=== PATIENT | male | born 1960 | race Caucasian/White ===

== ENCOUNTER → 2018-05-15 10:49 | Outpatient (CLI) | payer OTHER, SELFPAY ==
--- NOTE | 2018-05-15 | DI.RAD.S_ITS ---
PROCEDURE: XR CERVICAL SPINE 2V OR 3V INDICATIONS: CHRONIC PAIN OF BOTH KNEES TECHNIQUE: 4 view(s) of the cervical spine were acquired. COMPARISON: None. FINDINGS: Bones: No fractures or dislocations to the T1 level. The lateral masses of C1 appear intact on the odontoid view. No suspicious bony lesions. There are large bridging osteophytes producing ankylosis between the anterior vertebral bodies of C2 through C7 and possibly into T1. Soft tissues: No prevertebral soft tissue swelling. IMPRESSION: Large anterior bridging osteophytes, producing what appears to be an ankylosis along the anterior cervical spine extending to the cervical thoracic junction. No acute trauma appears associated. Dictated by: Markie Mckinney M.D. on 05/15/2018 at 12:56 Approved by: Markie Mckinney M.D. on 05/15/2018 at 12:57
--- NOTE | 2018-05-15 | DI.RAD.S_ITS ---
PROCEDURE: XR KNEE LT 3V INDICATIONS: CHRONIC PAIN OF BOTH KNEES TECHNIQUE: 3 views of the knee were acquired. COMPARISON: None. FINDINGS: Bones: No fractures or dislocations. No suspicious bony lesions. There is mild to moderate medial patellofemoral compartment narrowing. Small periarticular osteophytes are present. No erosions. Patellar osteophytes are present. Soft tissues: Minimal to mild joint effusion. No suspicious soft tissue calcifications. IMPRESSION: Mild to moderate degenerative changes as above most suggestive of arthritis. Dictated by: Sharita Berman M.D. on 05/15/2018 at 12:09 Approved by: Sharita Berman M.D. on 05/15/2018 at 12:10
== END ==
PROVIDERS: PCP Family Medicine; Visit Provider Family Medicine
DX: M54.2 Cervicalgia (principal); M25.561 Pain in right knee; M25.562 Pain in left knee; G89.29 Other chronic pain; N40.1 Benign prostatic hyperplasia with lower urinary tract symptoms
CPT/HCPCS: 72040; 73562

== ENCOUNTER → 2020-01-06 09:07 | Outpatient (CLI) | payer OTHER, SELFPAY ==
--- NOTE | 2020-01-06 | DI.RAD.S_ITS ---
PROCEDURE: XR CERVICAL SPINE 2V OR 3V INDICATIONS: CERVICAL SPONDYLOSIS WITH RADICULOPATHY TECHNIQUE: 3 view(s) of the cervical spine were acquired. COMPARISON: [facility], NATE, CT KUB, 06/18/2004, 9:31. [facility], JERI, XR CERVICAL SPINE 2V OR 3V, 05/15/2018, 11:08. FINDINGS: Bones: No fractures or dislocations to the T1 level. The lateral masses of C1 appear intact on the odontoid view. No suspicious bony lesions. There is mild multilevel mid and lower cervical spine disc degeneration similar to prior examination as well as calcification and bridging osteophytes of the vertebral bodies along the anterior longitudinal ligament as seen on prior exam. There has been debridement of anterior bridging calcification from C2 through C5. Soft tissues: No prevertebral soft tissue swelling. Airway caliber is normal. IMPRESSION: 1. Mild multilevel mid and lower cervical spine disc degeneration with calcification along the anterior longitudinal ligament. 2. Interval debridement of bulky anterior bridging calcification from C2 through C5. Dictated by: Yasmany Doyle [facility] Interpreted: Jerrica Bustos MD on 01/06/2020 at 9:27 Approved by: Jerrica Bustos M.D. on 01/06/2020 at 10:56
== END ==
PROVIDERS: PCP Family Medicine; Referring Provider Neurological Surgery; Visit Provider Neurological Surgery
DX: M47.22 Other spondylosis with radiculopathy, cervical region (principal); M50.120 Mid-cervical disc disorder, unspecified level
CPT/HCPCS: 72040

== ENCOUNTER → 2020-08-17 10:51 | Outpatient (CLI) | payer OTHER, SELFPAY ==
--- NOTE | 2020-08-17 10:58 | DI.CT.S_ITS ---
PROCEDURE: CT ABDOMEN PELVIS WO CON INDICATIONS: FLANK PAIN TECHNIQUE: After the administration of oral contrast, 5 mm thick sections acquired from the diaphragms to the symphysis. 5 mm coronal and sagittal reformats were performed. For radiation dose reduction, the following was used: automated exposure control, adjustment of mA and/or kV according to patient size. COMPARISON: [facility], , CT KUB, 06/18/2004, 9:31. FINDINGS: Image quality: Excellent. ABDOMEN: Lung bases: Lung bases are clear. Heart size is normal. Solid organs: Liver is normal in size. Gallbladder appears normal. Pancreas is normal in size. Spleen is normal in size. No adrenal nodules. Both kidneys are normal in size, without hydronephrosis or nephrolithiasis. Note is made of mild prominence of the central renal collecting system of the right kidney, not present on prior CT scanning 06/18/04. Over the right urinary tract a calculus cannot be seen. A mass lesion is not identified but the study is performed without contrast and therefore is reduced in sensitivity for accurate detection of small neoplasm. Peritoneum and bowel: Bowel loops demonstrate normal wall thickness and caliber. No free fluid or air. Nodes and vessels: No retroperitoneal or mesenteric adenopathy by size criteria. Aorta and inferior vena cava are normal in size. Miscellaneous: No ventral hernias. PELVIS: Genitourinary: Bladder wall thickness is normal. Miscellaneous: No inguinal hernias or adenopathy. Bones: No suspicious bony lesions. No vertebral body compression fractures. IMPRESSION: Mild right hydronephrosis etiology uncertain and not previously present on a comparison similar study from May of 2004. Follow-up ultrasound is recommended in several weeks to establish resolution of hydronephrosis, and if hydronephrosis persists follow-up urology consultation and consideration of either contrast-enhanced scanning including excretion phase of urothelial imaging, versus retrograde evaluation of the bladder and right-sided urinary tract. Dictated by: Markie Mckinney M.D. on 08/17/2020 at 11:31 Approved by: Markie Mckinney M.D. on 08/17/2020 at 11:35
== END ==
PROVIDERS: PCP Family Medicine; Referring Provider Family Medicine; Visit Provider Family Medicine
DX: N13.30 Unspecified hydronephrosis (principal)
CPT/HCPCS: 74176

== ENCOUNTER → 2020-09-05 09:12 | Outpatient (CLI) | payer OTHER, SELFPAY ==
--- NOTE | 2020-09-05 09:12 | DI.US.S_ITS ---
PROCEDURE: US RENAL COMPLETE INDICATIONS: rt hydronephrosis TECHNIQUE: Real-time scanning was performed of the kidneys and bladder, with image documentation. COMPARISON: [facility], CT, CT ABDOMEN PELVIS WO HEIDE, 08/17/2020, 10:58. FINDINGS: Kidneys: Kidneys are normal in size. Right kidney measures 11.4 cm long; left kidney measures 10.9 cm long. Right renal cortical thickness is 1.6 cm; left renal cortical thickness is 1.8 cm. Renal cortical echotexture is normal. No nephrolithiasis. No suspicious solid mass lesions. There is a small amount of right-sided hydronephrosis seen, which appears improved compared to the prior CT dated 08/17/2020. Bladder: Pre-void bladder volume is 159 mL. Post-void residual is 37 mL. Pre-void images demonstrate no intraluminal masses or stones. The bladder wall appears thickened, measuring 4 x 2 mm prevoid and 6.6 cm postvoid. On pre-void images, neither of the ureteral jets are noted with color Doppler interrogation. (Of note, ureteral jets may not be detectable in up to 25% of cases due to insufficient differences in specific gravity between ureteral and bladder urine). Miscellaneous: No free pelvic fluid. The prostate measures 5 x 4.6 x 3.9 cm. IMPRESSION: Mild right-sided hydronephrosis is seen, which appears improved compared to the prior CT examination. Moderate postvoid residual, 37 cc. Bladder wall thickening is seen. Please consider bladder outlet obstruction versus cystitis. Dictated by: Lonnie Guillen M.D. on 09/05/2020 at 9:21 Approved by: Lonnie Guillen M.D. on 09/05/2020 at 9:23
== END ==
PROVIDERS: PCP Family Medicine; Referring Provider Family Medicine; Visit Provider Family Medicine
DX: N13.30 Unspecified hydronephrosis (principal)
CPT/HCPCS: 76770

== ENCOUNTER → 2020-09-11 08:45 | Outpatient (CLI) | payer OTHER, SELFPAY ==
[2020-09-11 19:32] LABS: Add Manual Diff / Slide Review NO; Basophils Absolute Auto 100 /uL (0-100); Basophils Percent Auto 0.6 % (0-2); Eosinophils Absolute Auto 100 /uL (0-450); Eosinophils Percent Auto 0.9 % (2-4); Hematocrit 45.1 % (41-53); Hemoglobin 14.7 g/dL (13.5-17.5); Lymphocytes Absolute Auto 1400 /uL (1100-4500); Lymphocytes Percent Auto 11.8 % (25-40); Mean Corpuscular HGB Conc 32.6 % (30-36); Mean Corpuscular Volume 89.2 fL (80-100); Monocytes Absolute Auto 700 /uL (0-900); Monocytes Percent Auto 5.6 % (3-14); Neutrophils Absolute Auto 9800 /uL (1500-7000); Neutrophils Percent Auto 81.1 % (50-75); Platelet Count 169 X10^3/uL (150-400); Red Blood Cell Count 5.06 X10^6/uL (4.5-5.9); Red Cell Distribution Width 14.2 % (11.6-14.8); White Blood Cell Count 12.1 X10^3/uL (4.5-11.0)
[2020-09-11 19:47] LABS: Alanine Aminotransferase 31 IU/L (<50); Albumin 4.3 g/dL (3.5-5.0); Albumin Globulin Ratio 1.5 (1.0-2.8); Alkaline Phosphatase 64 U/L (38-126); Aspartate Aminotransferase 23 IU/L (17-59); BUN Creatinine Ratio 23.3 (6-22); Bilirubin Total 0.6 mg/dL (0.2-1.3); Blood Urea Nitrogen 28 mg/dL (9-20); Carbon Dioxide 25 mmol/L (22-32); Chloride 104 mmol/L (98-107); Estimated Glomerular Filt Rate > 60.0 mL/min (>60); Globulin 2.8 g/dL (1.7-4.1); Glucose 103 mg/dL (80-110); HEMOLYSIS < 15 (0-50); Potassium 4.7 mmol/L (3.4-5.1); Sodium 138 mmol/L (137-145); Total Protein 7.1 g/dL (6.3-8.2)
[2020-09-11 20:18] LABS: Prostate Specific Antigen Scrn 6.27 ng/mL (0.1-4.0)
== END ==
PROVIDERS: PCP Family Medicine; Visit Provider Family Medicine
DX: N13.30 Unspecified hydronephrosis (principal); Z12.5 Encounter for screening for malignant neoplasm of prostate
CPT/HCPCS: 80053; 85025; G0103

== ENCOUNTER → 2020-12-29 08:25 | Outpatient (CLI) | payer OTHER, SELFPAY ==
[2021-01-05 09:52] LABS: Size 4X4 mm; Stone Analysis Source NOT PROVIDED
[2021-01-05 09:53] LABS: Uric Acid 100%
== END ==
PROVIDERS: PCP Family Medicine; Visit Provider Physician Assistant Medical
DX: N20.0 Calculus of kidney (principal)
CPT/HCPCS: 82365

== ENCOUNTER → 2021-01-03 08:28 | Outpatient (CLI) | payer OTHER, SELFPAY ==
[2021-01-03 19:57] LABS: Prostate Specific Antigen 4.52 ng/mL (0.10-4.00)
== END ==
PROVIDERS: PCP Family Medicine; Visit Provider Physician Assistant Medical
DX: N40.1 Benign prostatic hyperplasia with lower urinary tract symptoms (principal); R35.1 Nocturia
CPT/HCPCS: 84153